=== PATIENT | female | born 1985 | race Caucasian/White ===

== ENCOUNTER 2020-02-27 12:40 | Outpatient (CLI) | payer OTHER, SELFPAY ==
--- NOTE | ~2020-02-27 | CT_ITS ---
EXAMINATION: CT brain wo con DATE: 02/27/2020 14:08 INDICATION: Seizures TECHNIQUE: Computed tomography (CT) of the head was performed without intravenous contrast. The dose- length product was 756.67 mGy-cm. The mA was adjusted according to patient size. Iterative reconstruc tion technique was employed. COMPARISON: None FINDINGS: Study limited by motion artifact. No acute intracranial hemorrhage, infarction, mass or mas s effect. Mild parenchymal atrophy for age. No ventriculomegaly or midline shift. Basilar cisterns ar e patent. Partially visualized soft tissue in the right maxillary sinus, consistent with sinusitis. M astoids are pneumatized. No depressed skull fractures. IMPRESSION: 1. No acute intracranial abnormality Reviewed, dictated and finalized at location A.
--- NOTE | 2020-02-27 13:30 | NEURO_ITS ---
TEST: DIAGNOSIS: ELECTROENCEPHALOGRAM PATIENT NUMBER: [id number] EEG NUMBER: [id number] RECORDING DATE: 02/27/20 CLINICAL HISTORY: Patient is mentally handicapped and is not sure why she is having this test done. CONDITION OF RECORDING: Awake and drowsy EEG DESCRIPTION: Basic resting occipital frequency consists of small amount of fairly well organized low voltage 8-10hz alpha mixed with low voltage 15-21hz beta. During drowsiness low voltage beta activity is seen diffusely mixed with waxing and waning posterior alpha rhythms. Photic stimulation produced normal drive. Multiple movement and electrode artifacts are noted. Nonparoxysmal. Nonfocal. Nonlateralizing. IMPRESSION: No significant abnormalities noted. MTDD
== END 2020-02-27 12:41 | disposition home or self-care (01) ==
PROVIDERS: Visit Provider Psychiatry & Neurology Neurology
DX: R56.9 Unspecified convulsions (principal)
CPT/HCPCS: 70450; 95816

== ENCOUNTER 2022-03-23 12:36 | Outpatient (CLI) | payer OTHER, SELFPAY ==
--- NOTE | 2022-03-24 09:59 | P.NEURO_ITS ---
Neurology EEG Report General Information Date of Study: 03/23/22 TEST eeg DIAGNOSIS Seizure disorder, and cerebral dysfunction. CONDITION OF RECORDING Awake drowsy and sleep EEG NUMBER [id number] CLINICAL HISTORY patient is mentally challenged and unable to give any history or reason for exam. EEG DESCRIPTION Basic resting occipital frequency consists of low to medium voltage 8 to 10 hertz per 2nd alpha admixed with low-voltage 15 to 18 hertz per 2nd beta. Low- voltage beta activity seen diffusely admixed with intermittent medium voltage theta activity. Bilateral symmetrical sleep activity seen during sleep. Hyperventilation not done. Photic stimulation produces normal drive. Non paroxysmal. Nonfocal. Nonlateralizing. IMPRESSION Normal recall
== END 2022-03-23 12:37 | disposition home or self-care (01) ==
LOC: ANHNEURO 12:39
PROVIDERS: PCP Family Medicine; Visit Provider Psychiatry & Neurology Neurology
DX: G93.89 Other specified disorders of brain (principal); G40.909 Epilepsy, unspecified, not intractable, without status epilepticus
CPT/HCPCS: 95816

== ENCOUNTER 2023-03-28 13:18 | Emergency (ER) | payer MEDICARE, MEDICAID, SELFPAY ==
--- NOTE | ~2023-03-28 | XR_ITS ---
EXAMINATION: XR nasal bones min 3V DATE: 03/28/2023 13:58 INDICATION: Nose injury. TECHNIQUE: 3 views of the nasal bones were obtained. COMPARISON: Head CT 09/29/2019 FINDINGS: There is rightward deviation anterior nasal septum and leftward deviation of posterior nasa l septum. There is no acute fracture. Right maxillary sinus is small with near complete opacification . IMPRESSION: 1. No acute nasal bone fracture. 2. Small right maxillary sinus with near complete opacification Reviewed, dictated and finalized at location E.
[2023-03-28 13:32] VITALS: BP 116/73; PULSE 79; RESP 20; TEMP 36.3; O2SAT 100
--- NOTE | 2023-03-28 13:45 | ED.FALL ---
HPI - Fall General Chief Complaint: Fall Stated Complaint: falling hit nose Source: patient, RN notes reviewed and other (community action worker) History of Present Illness HPI Narrative: 37 yo F presents to urgent care with rn case manager, Idalia, at side. Pt states [employer], she hit her nose on a table. Idalia states pt was sitting down and barely hit her nose on the table. Idalia states pt's nose bled a little but nothing significant. Pt denies any pain in her nose. Denies any LOC, facial tenderness, or other injury. Related Data Home Medications Medication Instructions Recorded Confirmed calcium carbonate 500 mg calcium 500 mg PO BID 06/15/21 03/28/23 (1,250 mg) tablet (Oyster Shell Calcium) lamotrigine 200 mg tablet 200 mg PO BID 06/15/21 03/28/23 loratadine 10 mg capsule 10 mg PO DAILY 06/15/21 03/28/23 melatonin 3 mg capsule 3 mg PO QHS 06/15/21 03/28/23 atorvastatin 20 mg tablet 20 mg PO DAILY 12/07/21 03/28/23 buspirone 10 mg tablet 10 mg PO BID 12/07/21 03/28/23 famotidine 20 mg tablet 20 mg PO DAILY 12/07/21 03/28/23 norethindrone (contraceptive) 0.35 0.35 mg PO DAILY 12/07/21 03/28/23 mg tablet (Deblitane) artificial 1 drp EACH EYE TID 12/29/22 03/28/23 tears(naglhet-sosjfcko-fvywmdc) 0.1 %-0.3 %-0.2 % eye drops (GenTeal Tears Moderate) benztropine 0.5 mg tablet 0.5 mg PO BID 12/29/22 03/28/23 cetirizine 10 mg tablet 10 mg PO DIRECTED 12/29/22 03/28/23 clonidine HCl 0.1 mg-0.2 mg 0.1 mg PO BID 12/29/22 03/28/23 tablet,extended release dose pack fluoride (sodium) 1.1 % dental 1 applic dental DAILY 12/29/22 03/28/23 cream (Sodium Fluoride 5000 Plus) ketoconazole 2 % topical cream 1 applic topical DAILY 12/29/22 03/28/23 risperidone 2 mg tablet 2 mg PO DAILY 12/29/22 03/28/23 risperidone 3 mg tablet 3 mg PO QHS 12/29/22 03/28/23 Allergies Allergy/AdvReac Type Severity Reaction Status Date / Time No Known Allergies Allergy Verified 03/28/23 13:44 Review of Systems Review of Systems: CONSTITUTIONAL: Denies fever, chills, or sweats. EYES: Denies visual changes, redness, or discharge. ENT: Nose injury CARDIOVASCULAR: Denies chest pain, palpitations, or edema. RESPIRATORY: Denies cough or dyspnea. GASTROINTESTINAL: Denies abdominal pain, nausea, vomiting, or diarrhea. GENITOURINARY: Denies dysuria or hematuria. SKIN: Denies rash or itching. MUSCULOSKELETAL: Denies back pain, joint pain, or myalgia. NEUROLOGIC: Denies headache, numbness, or weakness. Pertinent positives per HPI. [facility] Past Medical History Medical History GERD (gastroesophageal reflux disease) Hyperlipidemia Moderate intellectual disabilities Pseudobulbar affect Seasonal allergies Social History Social History (Updated 12/29/22 @ 14:30 by Florence Mcbride MA) Smoking status: Never smoker Alcohol intake: never Substance use: never Substance use type: does not use Lack of Transportation: No Lack of Food: Never True Current Housing: I Have Housing Concerned About Future Housing: No Difficulty Paying Gas/Electric Bills: No Difficulty Paying for Meds: No Currently Unemployed: No Education: Grade School Difficulty w/ Childcare or Family Care: No Comments At the time of my signature, I reviewed and agree with the nursing past medical, surgical, social, and family history. There is no relevant family history pertinent to the patient complaint. Exam Narrative: GENERAL: This is a well-nourished, well-developed patient, in no apparent distress. HEAD: normocephalic, atraumatic. EYES: Sclera clear/white. Vision is grossly intact. EARS: External ears normal, auditory canals clear and without drainage, TMs normal without perforation. Hearing grossly intact. NOSE: External nose normal with no obvious nasal discharge, nares without redness, no rhinorrhea. No tenderness. No deformity noted. THROAT: Mucous membranes moist, posterior pharynx
== END 2023-03-28 14:17 | disposition home or self-care (01) ==
PROVIDERS: Emergency Provider Nurse Practitioner Family; PCP Internal Medicine
DX: S00.33XA Contusion of nose, initial encounter (principal); W22.03XA Walked into furniture, initial encounter; K21.9 Gastro-esophageal reflux disease without esophagitis; E78.5 Hyperlipidemia, unspecified
CPT/HCPCS: 70160; 99213; G0463